=== PATIENT | male | born 1960 | race African-American/Black ===

== ENCOUNTER 2016-08-15 04:37 | Emergency (ER) | payer BC, OTHER ==
[~2016-08-15] VITALS: Ht 180.3 cm; Wt 140.6 kg
[~2016-08-15 04:37] MED LIST: AMLO10TA2 PO; ASPI1TAB30 PO; INDO50CA PO; LORA10TA3 PO; LOVA20TA2 PO; METO50TA2 PO; NAPR375T5 PO; PSEU1TAB PO; RANI150T2 PO
--- NOTE | 2016-08-15 06:46 | PHYS DOC ---
Past Medical History Past Medical History: Arthritis, Cancer, Hypertension, Other Additional Past Medical Histor: GOUT, LEUKEMIA, ULCERS 20 YRS AGO Past Surgical History: Tonsillectomy Additional Past Surgical Histo: bone marrow biospy, EGD Alcohol Use: None Drug Use: None Adult General Chief Complaint Chief Complaint: COUGH HPI HPI Patient is a 56 year old male presenting to the emergency department for evaluation of a cough that has been going on for 10 days and is associated with sore throat sinus congestion and runny nose. He says that he sometimes feels short of breath or cough. He denies any chest pain nausea vomiting diarrhea. He says that he has a history of leukemia that is currently being monitored but not treated and is concerned that this may have something to do with his symptoms. Review of Systems Review of Systems Constitutional: Denies fever or chills [] HENT: + nasal congestion and sore throat [] Respiratory: + cough and shortness of breath [] Cardiovascular: No additional information not addressed in HPI [] Current Medications Current Medications Current Medications Medications (Trade) Dose Ordered Sig/Melissa Start Time Stop Time Status Last Admin Dose Admin Albuterol Sulfate (Ventolin Neb Soln) 5 mg 1X ONCE 08/15/16 07:00 08/15/16 07:01 DC 08/15/16 06:45 5 MG Albuterol/ Ipratropium (Duoneb) 3 ml 1X ONCE 08/15/16 07:00 08/15/16 07:01 DC 08/15/16 06:44 3 ML Dexamethasone (Decadron) 8 mg 1X ONCE 08/15/16 07:00 08/15/16 07:01 DC 08/15/16 06:33 8 MG Allergies Allergies Allergies Coded Allergies Type Severity Reaction Last Updated Verified codeine Adverse Reaction Intermediate Nausea and Vomiting 01/06/15 Yes Physical Exam Physical Exam Constitutional: Well developed, well nourished, no acute distress, non-toxic appearance. [] HENT: Normocephalic, atraumatic, bilateral external ears normal, oropharynx erythemetous, no oral exudates, boggy nasal turbinates. [] Cardiovascular:Heart rate regular rhythm, no murmur [] Lungs & Thorax: Bilateral breath sounds with inspiratory and expiratory wheezing Current Patient Data Vital Signs Vital Signs Date Time Temp Pulse Resp B/P (MAP) Pulse Ox O2 Delivery O2 Flow Rate FiO2 08/15/16 06:49 99 Room Air 08/15/16 05:06 97.9 94 20 97.9 Lab Values Laboratory Tests Test 08/15/16 06:40 White Blood Count 26.6 x10^3/uL (4.0-11.0) H Red Blood Count 4.63 x10^6/uL (4.30-5.70) Hemoglobin 12.8 g/dL (13.0-17.5) L Hematocrit 40.6 % (39.0-53.0) Mean Corpuscular Volume 88 fL (79-100) Mean Corpuscular Hemoglobin 28 pg (25-35) Mean Corpuscular Hemoglobin Concent 32 g/dL (31-37) Red Cell Distribution Width 16.0 % (11.5-14.5) H Platelet Count 266 x10^3/uL (140-400) Neutrophils (%) (Auto) 20 % (31-73) L Lymphocytes (%) (Auto) 74 % (24-48) H Monocytes (%) (Auto) 2 % (0-9) Eosinophils (%) (Auto) 3 % (0-3) Basophils (%) (Auto) 1 % (0-3) Neutrophils # (Auto) 5.4 x10^3uL (1.8-7.7) Lymphocytes # (Auto) 19.8 x10^3/uL (1.0-4.8) H Monocytes # (Auto) 0.6 x10^3/uL (0.0-1.1) Eosinophils # (Auto) 0.7 x10^3/uL (0.0-0.7) Basophils # (Auto) 0.2 x10^3/uL (0.0-0.2) Platelet Estimate Pending Sodium Level 142 mmol/L (136-145) Potassium Level 4.6 mmol/L (3.5-5.1) Chloride Level 105 mmol/L (98-107) Carbon Dioxide Level 32 mmol/L (21-32) Anion Gap 5 (6-14) L Blood Urea Nitrogen 7 mg/dL (8-26) L Creatinine 1.3 mg/dL (0.7-1.3) Estimated GFR (Cockcroft-Gault) 69.6 BUN/Creatinine Ratio 5 (6-20) L Glucose Level 116 mg/dL (70-99) H Calcium Level 9.1 mg/dL (8.5-10.1) Magnesium Level 2.0 mg/dL (1.8-2.4) Total Bilirubin 0.3 mg/dL (0.2-1.0) Aspartate Amino Transferase (AST) 21 U/L (15-37) Alanine Aminotransferase (ALT) 29 U/L (16-63) Alkaline Phosphatase 115 U/L (46-116) Creatine Kinase 157 U/L (39-308) Total Protein 7.9 g/dL (6.4-8.2) Albumin 3.9 g/dL (3.4-5.0) Albumin/Globulin Ratio 1.0 (1.0-1.7) Laboratory Tests 08/15/16 06:40 Laboratory Tests 08/15/16 06:40 EKG EKG [] Radiology/Procedures Radiology/Procedures EXAM: Chest 2 views. HISTORY: Cough, leukemia. COMPARISON: None. FINDINGS: Frontal and lateral views of the chest are obtained. There are no confluent infiltrates. There is no pneumothorax or pleural effusion. The heart is not enlarged. IMPRESSION: 1. No confluent infiltrates. DICTATED and SIGNED BY: KIRK SALDANA MD DATE: 08/15/16722 Course & Med Decision Making Course & Med Decision Making Patient with 10 days of URI symptoms so will get labs chest x-ray and reassess. Chest x-ray is normal and patient is feeling much better after the breathing treatment and steroid here. Patient has repeat normal vital signs and he feels well and is asking to home so he'll be discharged with supportive treatment and told to follow with his primary care provider later this week and come back to the ER sooner with any worsening pain fevers vomiting or other general concerns. Patient discharged in stable condition. Dragon Disclaimer Dragon Disclaimer This electronic medical record was generated, in whole or in part, using a voice recognition dictation system. Departure Departure Impression: Primary Impression: URI (upper respiratory infection) Disposition: 01 HOME, SELF-CARE Condition: GOOD Referrals: UNKNOWN PCP NAME (PCP) Patient Instructions: Upper Respiratory Infection, Adult Additional Instructions: Use [id number] Benadryl or Claritin as this may help dry your sinuses. Follow with your primary care provider later this week. Scripts Azithromycin (ZITHROMAX PACKET) 1 Gm Packet 1 PACKET PO ONCE, #1 PACKET Prov: NESHA MARTINEZ DO 08/15/16 Albuterol Sulfate (PROAIR HFA INHALER) 8.5 Gm Hfa.aer.ad 1 PUFF INH Q4HRS Y for SHORTNESS OF BREATH, #1 INHALER 0 Refills Prov: NESHA MARTINEZ DO 08/15/16 Benzonatate (TESSALON PERLE) 100 Mg Capsule 1 CAP PO TID, #15 CAP Prov: NESHA MARTINEZ DO 08/15/16 Problem Qualifiers Primary Impression: URI (upper respiratory infection) URI type: unspecified URI Qualified Codes: J06.9 - Acute upper respiratory infection, unspecified NESHA MARTINEZ DO Aug 15, 2016 06:46
[2016-08-15 06:52] LABS: BASO # 0.2 x10^3/uL (0.0-0.2); BASO % 1 % (0-3); EOS % 3 % (0-3); HEMATOCRIT 40.6 % (39.0-53.0); HEMOGLOBIN 12.8 g/dL (13.0-17.5); LYMPH # 19.8 x10^3/uL (1.0-4.8); LYMPH % 74 % (24-48); MEAN CORPUSCULAR HEMOGLOBIN 28 pg (25-35); MEAN CORPUSCULAR HGB CONC 32 g/dL (31-37); MEAN CORPUSCULAR VOLUME 88 fL (79-100); MONO % 2 % (0-9); NEUT % 20 % (31-73); PLATELET COUNT 266 x10^3/uL (140-400); RED BLOOD COUNT 4.63 x10^6/uL (4.30-5.70); WHITE BLOOD COUNT 26.6 x10^3/uL (4.0-11.0)
[2016-08-15 06:56] LABS: CALCIUM 9.1 mg/dL (8.5-10.1); CREATININE 1.3 mg/dL (0.7-1.3); GFR 69.6; POTASSIUM 4.6 mmol/L (3.5-5.1)
[2016-08-15] MEDS ORDERED: IPRATRPIUM/ALBUTEROL 0.5/2.5MG 3 ML NEBU. NEB ONE (07:00)
[2016-08-15] MEDS ORDERED: DEXAMETHASONE 4 MG TABLET PO ONE (07:00)
[2016-08-15] MEDS ORDERED: ALBUTEROL SULFATE 2.5 MG/3 ML NEBU. NEB ONE (07:00)
[2016-08-15 07:02] LABS: ALBUMIN 3.9 g/dL (3.4-5.0); TOTAL BILIRUBIN 0.3 mg/dL (0.2-1.0); TOTAL PROTEIN 7.9 g/dL (6.4-8.2)
--- NOTE | 2016-08-15 07:25 | RAD ---
EXAM: Chest 2 views. HISTORY: Cough, leukemia. COMPARISON: None. FINDINGS: Frontal and lateral views of the chest are obtained. There are no confluent infiltrates. There is no pneumothorax or pleural effusion. The heart is not enlarged. IMPRESSION: 1. No confluent infiltrates.
[2016-08-15] MEDS ORDERED: BENZ100C PO (08:01)
[2016-08-15] MEDS ORDERED: PROAIR HFA8.5 GM INH (08:01)
[2016-08-15] MEDS ORDERED: AZIT1PAC PO (08:01)
[2016-08-15 08:07] VITALS: BP 133/87
[2016-08-15 09:00] LABS: % BASOS 1 % (0-3); % EOS 5 % (0-5)
[2016-08-15 09:25] LABS: ANISOCYTOSIS SLIGHT; PLT ESTIMATE ADEQUATE (ADEQUATE); POIKILOCYTOSIS SLIGHT
== END 2016-08-15 08:12 | disposition home or self-care (01) ==
LOC: ER 04:37
DX: J06.9 Acute upper respiratory infection, unspecified (principal); R06.02 Shortness of breath; M10.9 Gout, unspecified; I10 Essential (primary) hypertension; M19.90 Unspecified osteoarthritis, unspecified site; Z88.6 Allergy status to analgesic agent
CPT/HCPCS: 36415; 71020; 80053; 82550; 83735; 85007; 85027; 94640; 99285; J7620; J8540

== ENCOUNTER 2017-01-28 23:59 | Emergency (ER) | payer BC ==
[~2017-01-28] VITALS: Ht 180.3 cm; Wt 140.6 kg
[~2017-01-28 23:59] MED LIST changes: -ASPI1TAB30 PO; +ASPI1TAB31 PO; +AZIT1PAC PO; +BENZ100C PO; +PROAIR HFA8.5 GM INH
--- NOTE | 2017-01-29 | PHYS DOC ---
Past Medical History Past Medical History: Arthritis, Cancer, Hypertension, Other Additional Past Medical Histor: GOUT, LEUKEMIA, ULCERS 20 YRS AGO Past Surgical History: Tonsillectomy Additional Past Surgical Histo: bone marrow biospy, EGD Alcohol Use: None Drug Use: None Adult General Chief Complaint Chief Complaint: DENTAL PROBLEM HPI HPI Patient is a 57 year old -[place] male who presents with pain. He states been hurting on and off the last 3 weeks and today got unbearable. He started take nortriptyline in addition to extra strength Tylenol without any relief. He denies any fevers chills nausea vomiting. He denies any trismus, denies any changes voice. He does not have a dentist currently. Review of Systems Review of Systems Constitutional: Denies fever or chills [] Eyes: Denies change in visual acuity, redness, or eye pain [] HENT: Denies nasal congestion or sore throat [] Respiratory: Denies cough or shortness of breath [] Cardiovascular: No additional information not addressed in HPI [] GI: Denies abdominal pain, nausea, vomiting, bloody stools or diarrhea [] : Denies dysuria or hematuria [] Musculoskeletal: Denies back pain or joint pain [] Integument: Denies rash or skin lesions [] Neurologic: Denies headache, focal weakness or sensory changes [] Endocrine: Denies polyuria or polydipsia [] All other systems were reviewed and found to be within normal limits, except as documented in this note. Allergies Allergies Allergies Coded Allergies Type Severity Reaction Last Updated Verified codeine Adverse Reaction Intermediate Nausea and Vomiting 01/06/15 Yes Physical Exam Physical Exam Constitutional: Well developed, well nourished, no acute distress, non-toxic appearance. [] HENT: Normocephalic, atraumatic, bilateral external ears normal, oropharynx moist, no oral exudates, nose normal. Tender palpation over the left upper teeth , no obvious cavities, no Clint angina, no apical swelling or abscess appreciated. Eyes: PERRLA, EOMI, conjunctiva normal, no discharge. [] Neck: Normal range of motion, no tenderness, supple, no stridor. [] Cardiovascular:Heart rate regular rhythm, no murmur [] Lungs & Thorax: Bilateral breath sounds clear to auscultation [] Abdomen: Bowel sounds normal, soft, no tenderness, no masses, no pulsatile masses. [] Skin: Warm, dry, no erythema, no rash. [] Back: No tenderness, no CVA tenderness. [] Extremities: No tenderness, no cyanosis, no clubbing, ROM intact, no edema. [] Neurologic: Alert and oriented X 3, normal motor function, normal sensory function, no focal deficits noted. [] Psychologic: Affect normal, judgement normal, mood normal. [] EKG EKG [] Radiology/Procedures Radiology/Procedures [] Impressions: Dental pain Course & Med Decision Making Course & Med Decision Making Pertinent Labs and Imaging studies reviewed. (See chart for details) He does not have any Clint angina or trismus or change in his voice. Appreciate any abscess formation or other concerning signs. We'll discharge with Pen-Vee K and [place]. Return precautions given. He is to follow-up with dentist within next few days. He and his significant other agreeable plan being discharged in stable condition at this time. Dragon Disclaimer Dragon Disclaimer This electronic medical record was generated, in whole or in part, using a voice recognition dictation system. Departure Departure Impression: Primary Impression: Pain, dental Disposition: HOME, SELF-CARE Condition: STABLE Referrals: UNKNOWN PCP NAME (PCP) Patient Instructions: Dental Pain Additional Instructions: You likely have a cavity shay is causing your pain. You'll need take antibiotics for the next 7 days and you can take [place] which is a narcotic pain medicine. Please don't drive your car or drink alcohol while taking [place] as it can impair your judgment and make you sleepy. You will need to follow-up with a dentist on Monday. Return back to ER if you have severe pain, troubles breathing , swallowing, changes in her voice, or other concerns. Scripts Hydrocodone/Apap 5-325 (NORCO 5-325 TABLET) 1 Each Tablet 1-2 TAB PO PRN Q6HRS Y for PAIN, #15 TAB 0 Refills Prov: PAT CORTEZ MD 01/29/17 Penicillin V Potassium (PENICILLIN V POTASSIUM) 500 Mg Tablet 1 TAB PO QID, #28 TAB Prov: PAT CORTEZ MD 01/29/17 PAT CORTEZ MD Jan 29, 2017 00:00
[2017-01-29 00:16] VITALS: BP 163/107
[2017-01-29] MEDS ORDERED: PENI500T PO (00:16)
[2017-01-29] MEDS ORDERED: HYDR-971 PO (00:16)
== END 2017-01-29 00:25 | disposition home or self-care (01) ==
LOC: ER 23:59
DX: K08.89 Other specified disorders of teeth and supporting structures (principal); M10.9 Gout, unspecified; I10 Essential (primary) hypertension; Z88.5 Allergy status to narcotic agent
CPT/HCPCS: 99283